=== PATIENT | female | born 1990 | race American Indian/Alaskan Native ===

== ENCOUNTER 2018-06-08 20:17 | Emergency (ER) | payer OTHER ==
[2018-06-08 20:24] VITALS: BP 154/101
[2018-06-08] MEDS ORDERED: ULTRAM PO ONE (21:45)
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
[2018-06-08 21:54] LABS: Bilirubin,Urine NEG (Negative); Blood,Urine SM (Negative); Color,Urine Yellow (Yellow); Mucus,Urine FEW /HPF; Protein,Urine <15 mg/dL mg/dL (Negative); Urobilinogen,Urine < 2.0 mg/dL (<2.0)
[2018-06-08 21:55] LABS: HCG Qualitative,Urine Negative (Negative)
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
== END 2018-06-08 23:23 | disposition home or self-care (01) ==
LOC: ED 20:17
DX: S39.012A Strain of muscle, fascia and tendon of lower back, initial encounter (principal); Z90.49 Acquired absence of other specified parts of digestive tract; I10 Essential (primary) hypertension; V89.2XXA Person injured in unspecified motor-vehicle accident, traffic, initial encounter; Y93.89 Activity, other specified; Y99.8 Other external cause status; Y92.410 Unspecified street and highway as the place of occurrence of the external cause
CPT/HCPCS: 72100; 81001; 81025; 99283

== ENCOUNTER 2018-11-30 01:04 | Outpatient (CLI) | payer MEDICAID ==
[2018-11-30 02:59] VITALS: BP 129/74
[2018-11-30 03:02] LABS: Bilirubin,Urine NEG (Negative); Blood,Urine NEG (Negative); Color,Urine Yellow (Yellow); Mucus,Urine FEW /HPF; Protein,Urine <15 mg/dL mg/dL (Negative); Urobilinogen,Urine < 2.0 mg/dL (<2.0)
== END 2018-11-30 03:00 | disposition home or self-care (01) ==
LOC: TRG 01:04
PROVIDERS: ATTEND Obstetrics & Gynecology
DX: O26.892 Other specified pregnancy related conditions, second trimester (principal); M54.9 Dorsalgia, unspecified; Z3A.22 22 weeks gestation of pregnancy
CPT/HCPCS: 59025; 81001

== ENCOUNTER 2019-07-16 14:09 | Emergency (ER) | payer OTHER, MEDICAID ==
[2019-07-16 15:45] VITALS: BP 139/83
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
== END 2019-07-16 18:53 | disposition left against medical advice (07) ==
LOC: ED 14:09
DX: M54.89 Other dorsalgia (principal); M25.511 Pain in right shoulder; V89.2XXA Person injured in unspecified motor-vehicle accident, traffic, initial encounter; Y93.89 Activity, other specified; Y92.410 Unspecified street and highway as the place of occurrence of the external cause; Y99.8 Other external cause status
CPT/HCPCS: 72040; 72070; 99283